=== PATIENT | female | born 1955 | race Caucasian/White ===

== ENCOUNTER → 2024-02-27 01:46 | Outpatient (CLI) | payer MEDICARE, SELFPAY ==
--- NOTE | 2024-02-27 | ETT_ITS ---
APPROVED REPORT Exam: Exercise Treadmill Patient Location: Out-Patient Room/Bed: Stress Nurse: Guerrero Venegas RN and Brooklyn Price RN Ordering Provider:JUDY FAY, Contact Number: [phone] BMI: 36.75 Baseline Rhythm: Sinus Rhythm. Indications: Dyspnea (SOB) on Exertion. Medical History Medical History: Legally Blind; Hyperlipidemia; Hypertension; Dyspnea on Exertion; Obesity; Pre-diabe nick. Cardiac Medications: Albuterol; Dorzolamide-Timolol; Lisinopril; Atorvastatin. Allergies: Almonds; Shrub and Tree Pollens; Clobetasol Propionate. Cardiac Risk Factors: Family Hx; Hyperlipidemia; Hypertension; Pre-diabetes; Asthma; Obesity. Previous Cardiac Procedures: None. Pretest Chest Pain Characteristics: None. Exercise History: Physically active. Physical Disabilities: Legally Blind. Lung Sounds: Clear bilaterally throughout, anterior and posterior. Heart Sounds: S1 and S2 auscultated. Stress Test Details Test: Exercise stress testing was performed using a Dandy protocol. Rest Stress HR Resting HR Supine: 69 bpm Max Heart Rate (APMHR): 153 bpm Resting HR Standin bpm Target HR (85% APMHR): 130 bpm Max HR Achieved: 133 bpm % of APMHR: 87 Recovery HR: 78 bpm HR response to stress: Normal HR response to stress. BP Resting BP Supine: 110/80 mmHg Resting BP Standin/62 mmHg Max BP: 182/50 mmHg Recovery BP: 112/62 mmHg BP response to stress: Normal blood pressure response to stress. ECG Resting ECG: Sinus Rhythm. Ectopy: None. Stress ECG: Sinus Tachycardia. ST Change: No significant ST segment changes noted; non-diagnostic ST abnormalities. Lead(s): III Arrhythmia: Frequent PVC's. Recovery ECG: Sinus Rhythm. Recovery ST Change: No significant ST segment changes noted; non-diagnostic ST abnormalities. Lead(s): III Recovery Arrhythmia: Occasional PVC's; Occasional PAC's. Clinical Reason for Termination: Target HR Achieved Stress Symptoms: Mild SOB. Exercise duration: 02 min32 sec Highest Stage Reached: Stage 1: 1.7 mph at 10% grade. Exercise capacity: 4.64 METs Angina Score: None Rate Pressure Product: [id number] Stress ECG Conclusion 1. Resting electrocardiogram showed poor R wave progression 2. Patient exercised on a Dandy protocol and completed a workload of 4.64 METS 3. Normal heart rate and blood pressure response to exercise. Patient achieved 87% of maximal predic mark heart rate for age 4. There was no electrocardiographic evidence of myocardial ischemia 5. There were no significant dysrhythmias Stress Test Summary STAGE Time (mins) Speed (mph) Grade (%) HR BP SpO2 SYMPTOMS METS Supine 69 110/80 93 Standing 72 144/62 1 3 1.7 10 133 4.5 1 min recovery 108 182/50 97 Mild SOB. 3 min recovery 87 166/70 6 min recovery 78 112/62 98 Mild SOB has resolved.
== END ==
PROVIDERS: PCP Physician Assistant; Visit Provider Physician Assistant
DX: R06.09 Other forms of dyspnea (principal)
CPT/HCPCS: 93016; 93018; 93017